=== PATIENT | male | born 1945 | race Caucasian/White ===

== ENCOUNTER 2019-01-22 07:32 | Day surgery (SDC) | payer MEDICARE ==
[~2019-01-22 07:32] MED LIST: Buffered Lidocaine 1% SYRIN* 1 ML/SYRINGE INTRADERM ONE; Dexamethasone TAB* 4 MG PO ONE; Famotidine IV* 10 MG/ML 2 ML (20 mg) IV ONE; Lactated Ringers 1000 ML Bag* 1,000 ML IV SCH
[2019-01-22] MEDS ORDERED: ceFAZolin 2 GM PREMIX in ORs 2 GM/50 ML BAG IVPB ONE (08:13)
[2019-01-22] MEDS ORDERED: Famotidine IV* 10 MG/ML 2 ML (20 mg) ONE (08:13)
[2019-01-22] MEDS ORDERED: Dexamethasone IV* 4 MG/ML 1 ML (4 MG) ONE (08:13)
[2019-01-22] MEDS ORDERED: fentaNYL* 50 MCG/ML 2 ML VIAL (100 MCG VIAL) ONE (08:53)
[2019-01-22] MEDS ORDERED: Bupivacaine 0.25% SDV PF* 10 ML VIAL INJ ONE (09:24)
[2019-01-22] MEDS ORDERED: EPHEDrine (Pressors)* 50 MG/ML VIAL ONE (10:04)
[2019-01-22] MEDS ORDERED: Naloxone* 0.4 MG/ML 1 ML VIAL IV PRN (10:20)
[2019-01-22] MEDS ORDERED: fentaNYL* 50 MCG/ML 2 ML VIAL (100 MCG VIAL) IV PRN (10:20)
[2019-01-22] MEDS ORDERED: DiMENhydriNATE IV* 50 MG/ML VIAL IV PUSH PRN (10:20)
[2019-01-22] MEDS ORDERED: Ketorolac INJ* 30 MG/ML 1 ML VIAL ONE (10:43)
[2019-01-22] MEDS ORDERED: Ondansetron INJ* 2 MG/ML VIAL ONE (10:43)
[2019-01-22] MEDS ORDERED: Lidocaine 2% PF * 5 ML VIAL ONE (11:41)
[2019-01-22] MEDS ORDERED: Propofol* 10 MG/ML 20 ML BTL ONE (11:41)
[2019-01-22 13:04] VITALS: BP 107/85
--- NOTE | 2019-01-22 17:15 | OP ---
DATE OF OPERATION: 01/22/19 - [facility] DATE OF : 49 SURGEON: Angel Oneill MD HOURLY SHIFT MANAGER: HAYDEN Bernal. An assisted living assistant was needed for the procedure to aid in positioning of the arm and retraction. ANESTHESIOLOGIST: Dr. Pham. ANESTHESIA: General. PRE-OP DIAGNOSES: 1. Left recurrent carpal tunnel syndrome, status post prior carpal tunnel release in 2008. 2. Left ulnar nerve probable compression at the wrist. 3. Left pisotriquetral degenerative joint disease. POST-OP DIAGNOSES: 1. Left recurrent carpal tunnel syndrome, status post prior carpal tunnel release in 2008. 2. Left ulnar nerve probable compression at the wrist. 3. Left pisotriquetral degenerative joint disease. OPERATIVE PROCEDURE: 1. Revision left carpal tunnel release with neurolysis and AxoGuard nerve wrapping, utilizing a 7 x 40 mm nerve protector. 2. Left wrist hypothenar fat pad transfer. 3. Left ulnar nerve decompression at the wrist. 4. Excision of left wrist pisiform bone. INDICATIONS: Fernando is 73 years old. He had carpal tunnel done, his pain is coming back, he has gained some ulnar-sided pain as well. He had a lot of pain and tenderness with any compression of the pisotriquetral joint. There is pain with gripping and flexion and ulnar deviation. The carpal tunnel symptoms did initially go away after the carpal tunnel release, but then a year to a year and half ago, they started to come back, is having a lot of night time symptoms. The index, middle, and ring fingers are the most affected. He has a lot of tenderness with any compression over Guyon's canal and that causes numbness and tingling in the small and ring fingers. ESTIMATED BLOOD LOSS: 5 mL. COMPLICATIONS: None. FINDINGS: See above and below. DESCRIPTION OF PROCEDURE: Fernando was seen in the preoperative holding area. The correct site, side, and procedure were identified. We came back to the operating room where the arm was prepped and draped in the usual fashion. A time-out was performed. The arm was exsanguinated with the Esmarch and the tourniquet was inflated to 250 mmHg. I made a longitudinal incision utilizing his prior carpal tunnel release incision, which was quite radial, this was brought back across the ulnar side of the wrist in Kayla-type fashion and extended a little bit proximally just ulnar to the palmaris longus tendon. Dissection was carried down and full thickness flap was raised off the distal antebrachial fascia and the healed transverse carpal ligament. I went ahead and released this just off the radial aspect of the hook of the hamate. Median nerve was encountered just under the transverse carpal ligament. I performed a full neurolysis. It looked like he was quite irritated from just proximal to the wrist flexion crease down a centimeter to into the carpal tunnel. The motor branch was identified and protected. I completed the release distally and proximally, this took quite some time as it was quite scarred and everything was very abnormal in regards to the tissue planes and the generalized large amount of scar tissue, but I was able to perform a full neurolysis. I then brought in an AxoGuard 7 x 40 mm nerve protector. I wrapped it around the disease portion of the nerve. It was secured with multiple simple 6-0 Prolene suture, only suturing the nerve protector to the nerve protector and not sewing it to the nerve. After I had the nerve wrapped in place, I went ahead and performed a decompression of the ulnar nerve through Guyon's canal. I came proximally out of all the scar tissue. I found the neurovascular bundle proximally out of all the scar tissue. I then traced it distally to a dense amount of scar tissue, but ultimately I was able to unroof the entirety of Guyon's canal and followed the ulnar nerve down to where it bifurcated. The traversing perforating vessels were cauterized with the bipolar. I exposed the motor branch and decompressed the origin of the hypothenar musculature as well as the subfascial layer until I had a full motor branch release. After the ulnar nerve was completely decompressed, I went ahead and released my hypothenar fat pad with a 15 blade, taking care to preserve the ulnar neurovascular bundle deep to that. I was able to release the fat pad distally and rotated it over, so I covered the diseased portion of the median nerve. I used the 4-0 Vicryl suture to do multiple simple interrupted sutures, sewing the hypothenar fat pad to the undersurface of the transverse carpal ligament at multiple points. This provided excellent coverage of the nerve. After the hypothenar fat pad transfer was done, I went ahead and closed the skin with 4-0 nylon suture. I then raised a Kayla-type incision over the pisiform. This was a little too ulnar than to get through the prior incision safely, so I went ahead and made a separate incision. Full thickness flap was raised off the pisiform and off the FCU tendon. I split the overlying FCU tendon longitudinally in the mid portion and I shelled out the pisiform with the [place] blade taking great care to preserve the ulnar neurovascular bundle just radial to the pisiform. A penetrating towel clip was used to maneuver the bone as I released the soft tissue about the bone. There were several osteophytes and was frankly arthritic on the undersurface. Bone was taken out in one big piece and handed off as a specimen. Multiple 4-0 Ethibond sutures were used to repair the FCU tendon [id number]. The wound had been irrigated out. The skin was closed with 4-0 nylon suture. Marcaine was infiltrated all around the operative area, short-arm cockup wrist splint was applied. He was taken to the recovery room in stable condition. [id number]/[facility] #: [id number] [facility]
== END 2019-01-22 13:25 | disposition home or self-care (01) ==
LOC: OREAST 07:32
PROVIDERS: ATTEND Orthopaedic Surgery Hand Surgery
DX: G56.02 Carpal tunnel syndrome, left upper limb (principal); G56.22 Lesion of ulnar nerve, left upper limb; M19.032 Primary osteoarthritis, left wrist; C61 Malignant neoplasm of prostate; E78.5 Hyperlipidemia, unspecified; Z87.891 Personal history of nicotine dependence; M19.90 Unspecified osteoarthritis, unspecified site
CPT/HCPCS: 88304; 88311; C1763; J0690; J1100; J1885; J2405; J2704; J3010; J3490